=== PATIENT | male | born 1970 | race Asian ===

== ENCOUNTER → 2018-03-26 15:20 | Day surgery (SDC) | payer BC ==
[~2018-03-26 15:20] MED LIST: Dexamethasone IV* 4 MG/ML 1 ML (4 MG) ONE; DiMENhydriNATE IV* 50 MG/ML VIAL ONE; Iohexol 180 (CONTRAST) 10 ML SDV IV ONE; Midazolam* 1 MG/ML 2 ML VIAL (2 MG) ONE; Propofol* 10 MG/ML 20 ML BTL IV PUSH ONE; Tamsulosin CAP* 0.4 MG ONE; cefTRIAXone(*) 2 GM ADDV.VIAL IVPB ONE; fentaNYL* 50 MCG/ML 2 ML VIAL (100 MCG VIAL) ONE
--- NOTE | 2018-03-26 19:33 | RAD ---
INDICATION: Stent placement COMPARISONS: CT dated March 14, 2018 TECHNIQUE: Fluoroscopy was provided for a retrograde pyelogram and stent placement. Total fluoroscopy time is: 10 seconds FINDINGS: Spot images demonstrate contrast within the renal collecting system. A ureteral stent is noted. IMPRESSION: FLUOROSCOPY WAS PROVIDED FOR A RETROGRADE PYELOGRAM AND STENT PLACEMENT CPT II Codes: G9500
[2018-03-26 21:08] VITALS: BP 151/102
--- NOTE | 2018-03-27 18:51 | OP ---
CC: Dr. Tremayne Fontanez * DATE OF OPERATION: 03/26/18 - [facility] DATE OF : 70 SURGEON: Rj Collado MD ANESTHESIOLOGIST: Dr. Acosta. ANESTHESIA: General. PRE-OP DIAGNOSES: 1. Right hydronephrosis. 2. Calculus, right distal ureter. POST-OP DIAGNOSES: 1. Right hydronephrosis. 2. Calculus, right distal ureter. OPERATIVE PROCEDURE: Cystoscopy, right retrograde pyelogram, right ureteroscopy and stone extraction, and right stent insertion. COMPLICATIONS: None. STENT USED: 6-Pashto stent right ureter. INDICATIONS: Megan Reyes is a 48-year-old gentleman who has had persistent calculus in the right distal ureter for about 3 weeks. He has been managed conservatively and had initially been on Flomax and in spite of that continued to have a 5-mm calculus in the right distal ureter with evidence of complete obstruction on ultrasound. OPERATIVE FINDINGS: 1. 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 2. Right hydronephrosis secondary to 5 mm calculus impacted in right distal ureter. POSTOPERATIVE CONDITION: Stable. DESCRIPTION OF PROCEDURE: After induction of general anesthesia, patient was placed in dorsal lithotomy position. Sequential compression devices were in place and functioning. 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 The true lumen was identified and the cystoscope was advanced. The remainder of the urethra is unremarkable. The bladder was entered and examined. Clear efflux was noted from the left orifice. There was no efflux noted from the right suggesting a complete obstruction. A guidewire was introduced into the right distal ureter. Retrograde pyelogram revealed fullness of the right collecting system. A 6- Pashto semirigid ureteroscope was introduced and advanced under direct vision. In the distal ureter just above the ureterovesical junction, a 5 to 6 mm calculus was noted to be impacted with some mild surrounding edema. Using a 3- pronged grasper, the stone was engaged and extracted and sent for analysis. No additional calculi were noted. A 6-Pashto stent was introduced and positioned under fluoroscopy with good proximal and distal positioning obtained. A 16- Pashto [place] tip Rose was placed over a guidewire to make sure that the catheter went into the true lumen and once this was easily done, the wire was removed. Patient tolerated the procedure satisfactorily and was transferred back to the recovery area in stable condition. [id number]/[facility] #: [id number] MTDD
== END | disposition home or self-care (01) ==
LOC: OR 15:20
PROVIDERS: ATTEND Urology
DX: N20.1 Calculus of ureter (principal); N13.30 Unspecified hydronephrosis; Z96.0 Presence of urogenital implants
CPT/HCPCS: 74420; 82365; 88300; C1876; J0696; J1100; J1240; J2250; J2704; J3010